=== PATIENT | male | born 1960 | race Hispanic/Latino ===

== ENCOUNTER 2022-09-14 08:37 | Inpatient (IN) | payer BC, SELFPAY ==
[2022-09-14] MEDS ORDERED: Iopamidol 370 76% 100 ML VIAL ONE (09:11)
[2022-09-14 09:30] LABS: #Eosinphils 0.2 10x3/uL (0.0-0.5); #Monocytes 0.9 10x3/uL (0.0-1.1); #Neutrophils 7.1 10x3/uL (1.5-8.4); %Basophils 0.3 % (0.0-2.0); %Eosinophils 2.1 % (0.0-6.0); %Lymphocytes 15.5 % (18.0-47.0); %Monocytes 9.4 % (0.0-10.0); %Neutrophils 72.1 % (40.0-75.0); Hemoglobin 15.4 g/dL (13.5-17.5); Mean Corpuscular HGB CONC 33.3 g/dL (32.0-36.0); Mean Corpuscular Hemoglobin 31.8 pg (27.0-33.0); Mean Corpuscular Volume 95.7 fl (81.2-95.1); Mean Platelet Volume 10.3 fl (7.4-10.4); Platelet Count 250 10x3/uL (150-450); RBC Distribution Width 14.5 % (11.5-14.5); Red Blood Cell (RBC) Count 4.84 10x6/uL (4.32-5.72); White Blood Cell (WBC) Count 9.9 10x3/uL (3.5-10.5)
[2022-09-14 09:47] LABS: ALT (SGPT) 41 U/L (8-55); AST (SGOT) 34 U/L (5-34); Albumin 4.2 g/dL (3.5-5.0); Alkaline Phosphatase 104 U/L (40-110); Anion Gap 13 mmol/L (10-20); BUN (Urea Nitrogen) 12 mg/dL (8.4-25.7); Bilirubin, Total 0.6 mg/dL (0.2-1.2); Calc. Creatinine Clearance 0 mL/min (70-130); Calcium 9.1 mg/dL (7.8-10.44); Carbon Dioxide 27 mmol/L (22-29); Chloride 105 mmol/L (98-107); Estimated GFR 49; Globulin 2.4 g/dL (2.4-3.5); Glucose 101 mg/dL (70-105); Potassium 4.2 mmol/L (3.5-5.1); Protein, Total 6.6 g/dL (6.0-8.3); Sodium 141 mmol/L (136-145)
[2022-09-14] MEDS ORDERED: Nitroglycerin 0.4 MG TAB (25 Tab Bottle) SL PRN (13:16)
[2022-09-14] MEDS ORDERED: Ondansetron ODT 4 MG TAB PO PRN (13:19)
[2022-09-14] MEDS ORDERED: Ondansetron PF 4 MG/2 ML Vial IVP PRN (13:19)
[2022-09-14] MEDS ORDERED: Acetaminophen 325 MG TAB PO PRN (13:19)
[2022-09-14] MEDS ORDERED: Dextrose 50% Abboject 50 ML SYRINGE SLOW IVP PRN (13:23)
[2022-09-14] MEDS ORDERED: HumaLOG 300 UNITS/3 ML VIAL SC PRN ×2 (13:23)
[2022-09-14] MEDS ORDERED: Dextrose 5% in Water 1,000 ML IV PRN (13:23)
[2022-09-14 13:35] LABS: Troponin I 0.054 ng/mL (< 0.028)
[2022-09-14 13:52] LABS: Magnesium 1.9 mg/dL (1.6-2.6)
[2022-09-14 14:13] LABS: Cardiac Risk 3.9 (Less than 4.5)
[2022-09-14] MEDS ORDERED: Enoxaparin Sodium 40 MG/0.4 ML SYRINGE SC SCH ×2 (14:30→21:00)
[2022-09-14] MEDS ORDERED: Nicotine 14 MG PATCH TD SCH (14:30)
[2022-09-14 16:05] LABS: Troponin I 0.053 ng/mL (< 0.028)
[2022-09-14] MEDS: Nicotine 14 MG PATCH TD SCH (21:14)
[2022-09-14 23:36] LABS: SARS-CoV-2 NAA Rapid Test Not Detected (NotDetected)
[2022-09-14] MEDS ORDERED: Melatonin 3 MG TAB PO SCH (23:45)
[2022-09-15 03:20] VITALS: BMI 37.3
[2022-09-15] MEDS ORDERED: HYDROcodone/Acetaminophen 10/325 mg Tablet ONE (04:30)
[2022-09-15] MEDS ORDERED: HYDROcodone/Acetaminophen 10/325 mg Tablet PO SCH (06:15)
[2022-09-15 06:44] LABS: #Basophils 0.1 10x3/uL (0.0-0.2); #Eosinphils 0.3 10x3/uL (0.0-0.5); #Neutrophils 7.9 10x3/uL (1.5-8.4); %Basophils 0.4 % (0.0-2.0); %Eosinophils 2.7 % (0.0-6.0); %Lymphocytes 17.4 % (18.0-47.0); %Monocytes 8.8 % (0.0-10.0); %Neutrophils 70.1 % (40.0-75.0); Hemoglobin 15.4 g/dL (13.5-17.5); Mean Corpuscular HGB CONC 33.4 g/dL (32.0-36.0); Mean Corpuscular Hemoglobin 32.6 pg (27.0-33.0); Mean Corpuscular Volume 97.5 fl (81.2-95.1); Mean Platelet Volume 11.1 fl (7.4-10.4); Platelet Count 256 10x3/uL (150-450); RBC Distribution Width 14.5 % (11.5-14.5); Red Blood Cell (RBC) Count 4.73 10x6/uL (4.32-5.72); White Blood Cell (WBC) Count 11.2 10x3/uL (3.5-10.5)
[2022-09-15 06:52] LABS: Anion Gap 15 mmol/L (10-20); BUN (Urea Nitrogen) 12 mg/dL (8.4-25.7); Calc. Creatinine Clearance 113 mL/min (70-130); Calcium 9.1 mg/dL (7.8-10.44); Carbon Dioxide 25 mmol/L (22-29); Chloride 105 mmol/L (98-107); Estimated GFR 74; Glucose 105 mg/dL (70-105); Potassium 4.2 mmol/L (3.5-5.1); Sodium 141 mmol/L (136-145)
[2022-09-15] MEDS ORDERED: Lisinopril 10 MG TAB PO SCH (09:00)
[2022-09-15] MEDS: Aspirin Chewable 81 MG TAB PO SCH (09:12)
[2022-09-15] MEDS ORDERED: Carvedilol 3.125 MG TAB PO SCH (10:00)
[2022-09-15] MEDS: HYDROcodone/Acetaminophen 10/325 mg Tablet PO PRN ×3 (10:38→20:42)
[2022-09-15] MEDS ORDERED: Communication Order-Pharmacy FS SCH (11:30)
[2022-09-15] MEDS: Sodium Chloride 0.9% 1,000 ML IV SCH (12:52)
[2022-09-15] MEDS: Carvedilol 3.125 MG TAB PO SCH (15:54)
[2022-09-15] MEDS: Rosuvastatin 20 MG TAB PO SCH (20:41)
[2022-09-15] MEDS: Nicotine 14 MG PATCH TD SCH (20:43)
[2022-09-16] MEDS: Sodium Chloride 0.9% 1,000 ML IV SCH ×2 (01:06→15:37)
[2022-09-16 04:40] LABS: #Basophils 0.1 10x3/uL (0.0-0.2); #Eosinphils 0.3 10x3/uL (0.0-0.5); #Neutrophils 7.4 10x3/uL (1.5-8.4); %Basophils 0.6 % (0.0-2.0); %Eosinophils 2.5 % (0.0-6.0); %Lymphocytes 16.4 % (18.0-47.0); %Monocytes 9.5 % (0.0-10.0); %Neutrophils 70.3 % (40.0-75.0); Hemoglobin 16.4 g/dL (13.5-17.5); Mean Corpuscular Hemoglobin 31.8 pg (27.0-33.0); Mean Corpuscular Volume 96.5 fl (81.2-95.1); Mean Platelet Volume 10.9 fl (7.4-10.4); Platelet Count 265 10x3/uL (150-450); RBC Distribution Width 14.2 % (11.5-14.5); Red Blood Cell (RBC) Count 5.15 10x6/uL (4.32-5.72); White Blood Cell (WBC) Count 10.6 10x3/uL (3.5-10.5)
[2022-09-16 04:48] LABS: ALT (SGPT) 30 U/L (8-55); AST (SGOT) 28 U/L (5-34); Alkaline Phosphatase 94 U/L (40-110); Anion Gap 13 mmol/L (10-20); BUN (Urea Nitrogen) 7 mg/dL (8.4-25.7); Bilirubin, Total 0.7 mg/dL (0.2-1.2); Calc. Creatinine Clearance 128 mL/min (70-130); Calcium 9.1 mg/dL (7.8-10.44); Carbon Dioxide 27 mmol/L (22-29); Cardiac Risk 4.5 (Less than 4.5); Chloride 104 mmol/L (98-107); Cholesterol 148 mg/dl (< 200 Desired); Estimated GFR 86; Globulin 2.9 g/dL (2.4-3.5); Glucose 107 mg/dL (70-105); HDL Cholesterol 33 mg/dL (>60 Neg Risk); LDL Cholesterol, Calculated 90 mg/dL; Magnesium 1.9 mg/dL (1.6-2.6); Potassium 4.1 mmol/L (3.5-5.1); Protein, Total 6.9 g/dL (6.0-8.3); Sodium 140 mmol/L (136-145); Triglycerides 123 mg/dL (Less than 150)
[2022-09-16 04:58] LABS: PTT 26.2 sec (22.0-33.0); Prothrombin Time 10.8 sec (9.5-12.1)
[2022-09-16] MEDS: Carvedilol 3.125 MG TAB PO SCH ×2 (06:08→16:10)
[2022-09-16] MEDS: Aspirin Chewable 81 MG TAB PO SCH (06:08)
[2022-09-16] MEDS: HYDROcodone/Acetaminophen 10/325 mg Tablet PO PRN ×3 (06:14→22:28)
[2022-09-16] MEDS: Magnesium Oxide 400 MG TAB PO SCH (08:22)
[2022-09-16] MEDS ORDERED: Iopamidol 300 61% 100 ML VIAL FS ONE (08:58)
[2022-09-16] MEDS ORDERED: Iopamidol 300 61% 50 ML VIAL FS ONE (08:58)
[2022-09-16] MEDS ORDERED: Nitroglycerin 50 MG/250 ML BOT 250 ML ONE (11:35)
[2022-09-16] MEDS ORDERED: Heparin 10,000 UNITS/ 10 ML VIAL ONE ×2 (11:36→13:54)
[2022-09-16] MEDS ORDERED: Adenosine 6 MG/2 ML VIAL ONE (11:38)
[2022-09-16] MEDS ORDERED: Verapamil 5 MG/2 ML VIAL ONE (11:38)
[2022-09-16] MEDS ORDERED: Bivalirudin 250 MG VIAL ONE (11:39)
[2022-09-16] MEDS ORDERED: Lidocaine 1% MPF 2 ML VIAL ONE (11:40)
[2022-09-16] MEDS ORDERED: Midazolam HCl 2 mg/2 ml Vial ONE ×2 (11:40→13:24)
[2022-09-16] MEDS ORDERED: Fentanyl 100 MCG/2 ML VIAL ONE (11:40)
[2022-09-16] MEDS ORDERED: TICAGRELOR 90 MG TABLET ONE (13:42)
[2022-09-16] MEDS ORDERED: Sodium Chloride 0.9% 200 ML IV PRN (14:14)
[2022-09-16] MEDS ORDERED: Nitroglycerin 0.4 MG TAB (25 Tab Bottle) SL PRN (14:14)
[2022-09-16] MEDS ORDERED: Acetaminophen/Codeine 30-300mg Tablet PO PRN ×2 (14:14)
[2022-09-16 14:53] LABS: Hemoglobin A1c 5.5 % (4.0-6.0)
[2022-09-16 19:25] LABS: Troponin I 0.084 ng/mL (< 0.028)
[2022-09-16] MEDS: Rosuvastatin 20 MG TAB PO SCH (22:15)
[2022-09-16] MEDS: TICAGRELOR 90 MG TABLET PO SCH (22:16)
[2022-09-16] MEDS: Nicotine 14 MG PATCH TD SCH (22:18)
[2022-09-16] MEDS: Sacubitril 49 MG/Valsartan 51 MG TABLET PO SCH (22:29)
[2022-09-17 04:41] LABS: #Eosinphils 0.2 10x3/uL (0.0-0.5); #Monocytes 1.2 10x3/uL (0.0-1.1); #Neutrophils 8.5 10x3/uL (1.5-8.4); %Basophils 0.3 % (0.0-2.0); %Eosinophils 1.7 % (0.0-6.0); %Lymphocytes 14.6 % (18.0-47.0); %Monocytes 10.5 % (0.0-10.0); %Neutrophils 72.5 % (40.0-75.0); Hemoglobin 16.4 g/dL (13.5-17.5); Mean Corpuscular HGB CONC 33.9 g/dL (32.0-36.0); Mean Corpuscular Hemoglobin 32.3 pg (27.0-33.0); Mean Corpuscular Volume 95.5 fl (81.2-95.1); Mean Platelet Volume 10.5 fl (7.4-10.4); Platelet Count 275 10x3/uL (150-450); RBC Distribution Width 14.3 % (11.5-14.5); Red Blood Cell (RBC) Count 5.07 10x6/uL (4.32-5.72); White Blood Cell (WBC) Count 11.8 10x3/uL (3.5-10.5)
[2022-09-17 04:53] LABS: Anion Gap 14 mmol/L (10-20); BUN (Urea Nitrogen) 10 mg/dL (8.4-25.7); Calc. Creatinine Clearance 117 mL/min (70-130); Carbon Dioxide 24 mmol/L (22-29); Chloride 107 mmol/L (98-107); Estimated GFR 78; Glucose 112 mg/dL (70-105); Magnesium 1.8 mg/dL (1.6-2.6); Sodium 141 mmol/L (136-145)
[2022-09-17] MEDS: Sodium Chloride 0.9% 1,000 ML IV SCH ×2 (06:05→11:43)
[2022-09-17] MEDS ORDERED: Magnesium Sulfate 4 GM in Sodium Chloride 0.9% 250 ML 250 ML IVPB SCH (07:45)
[2022-09-17] MEDS: ALPRAZolam 0.25 MG TAB PO PRN ×2 (10:17→17:41)
[2022-09-17] MEDS: Aspirin Chewable 81 MG TAB PO SCH (10:17)
[2022-09-17] MEDS: Magnesium Oxide 400 MG TAB PO SCH (10:17)
[2022-09-17] MEDS: Sacubitril 49 MG/Valsartan 51 MG TABLET PO SCH ×2 (10:17→21:01)
[2022-09-17] MEDS: Magnesium 2 GM/50 ML(in water) 2 GM in Premix Bag 1 BAG IVPB SCH ×2 (10:19→11:42)
[2022-09-17] MEDS: TICAGRELOR 90 MG TABLET PO SCH ×2 (10:19→21:02)
[2022-09-17] MEDS: Carvedilol 3.125 MG TAB PO SCH (11:43)
[2022-09-17] MEDS: HYDROcodone/Acetaminophen 10/325 mg Tablet PO PRN (17:40)
[2022-09-17] MEDS: Venlafaxine 75 MG TAB PO SCH (21:01)
[2022-09-17] MEDS: Rosuvastatin 20 MG TAB PO SCH (21:01)
[2022-09-17] MEDS: Nicotine 14 MG PATCH TD SCH (22:05)
[2022-09-18 05:07] LABS: Anion Gap 13 mmol/L (10-20); BUN (Urea Nitrogen) 10 mg/dL (8.4-25.7); Calc. Creatinine Clearance 136 mL/min (70-130); Calcium 9.1 mg/dL (7.8-10.44); Carbon Dioxide 25 mmol/L (22-29); Chloride 106 mmol/L (98-107); Estimated GFR 93; Glucose 112 mg/dL (70-105); Magnesium 2.3 mg/dL (1.6-2.6); Potassium 4.4 mmol/L (3.5-5.1); Sodium 140 mmol/L (136-145)
[2022-09-18 05:14] LABS: #Eosinphils 0.2 10x3/uL (0.0-0.5); #Monocytes 1.3 10x3/uL (0.0-1.1); #Neutrophils 11.4 10x3/uL (1.5-8.4); %Basophils 0.3 % (0.0-2.0); %Eosinophils 1.2 % (0.0-6.0); %Monocytes 8.8 % (0.0-10.0); %Neutrophils 77.2 % (40.0-75.0); Hemoglobin 17.2 g/dL (13.5-17.5); Mean Corpuscular HGB CONC 34.1 g/dL (32.0-36.0); Mean Corpuscular Hemoglobin 32.9 pg (27.0-33.0); Mean Corpuscular Volume 96.4 fl (81.2-95.1); Mean Platelet Volume 10.5 fl (7.4-10.4); Platelet Count 284 10x3/uL (150-450); RBC Distribution Width 14.2 % (11.5-14.5); Red Blood Cell (RBC) Count 5.23 10x6/uL (4.32-5.72); White Blood Cell (WBC) Count 14.8 10x3/uL (3.5-10.5)
[2022-09-18] MEDS: Sodium Chloride 0.9% 1,000 ML IV SCH ×2 (06:11→16:33)
[2022-09-18] MEDS: Aspirin Chewable 81 MG TAB PO SCH (08:23)
[2022-09-18] MEDS: Sacubitril 49 MG/Valsartan 51 MG TABLET PO SCH ×2 (08:23→20:55)
[2022-09-18] MEDS: Magnesium Oxide 400 MG TAB PO SCH (08:23)
[2022-09-18] MEDS: TICAGRELOR 90 MG TABLET PO SCH (08:24)
[2022-09-18] MEDS: ALPRAZolam 0.25 MG TAB PO PRN ×2 (08:25→20:56)
[2022-09-18] MEDS ORDERED: Prasugrel 10 MG TAB PO SCH (16:00)
[2022-09-18] MEDS: Nicotine 14 MG PATCH TD SCH (20:54)
[2022-09-18] MEDS: Rosuvastatin 20 MG TAB PO SCH (20:54)
[2022-09-18] MEDS: Venlafaxine 75 MG TAB PO SCH (20:55)
[2022-09-19 06:04] LABS: #Eosinphils 0.2 10x3/uL (0.0-0.5); #Monocytes 1.3 10x3/uL (0.0-1.1); #Neutrophils 9.6 10x3/uL (1.5-8.4); %Basophils 0.3 % (0.0-2.0); %Eosinophils 1.2 % (0.0-6.0); Hemoglobin 16.9 g/dL (13.5-17.5); Mean Corpuscular HGB CONC 32.8 g/dL (32.0-36.0); Mean Corpuscular Hemoglobin 31.9 pg (27.0-33.0); Mean Corpuscular Volume 97.2 fl (81.2-95.1); Mean Platelet Volume 10.4 fl (7.4-10.4); Platelet Count 288 10x3/uL (150-450); RBC Distribution Width 14.2 % (11.5-14.5); White Blood Cell (WBC) Count 13.2 10x3/uL (3.5-10.5)
[2022-09-19 06:14] LABS: Anion Gap 12 mmol/L (10-20); BUN (Urea Nitrogen) 13 mg/dL (8.4-25.7); Calc. Creatinine Clearance 125 mL/min (70-130); Carbon Dioxide 26 mmol/L (22-29); Chloride 104 mmol/L (98-107); Estimated GFR 84; Glucose 114 mg/dL (70-105); Potassium 4.1 mmol/L (3.5-5.1); Sodium 138 mmol/L (136-145)
[2022-09-19] MEDS ORDERED: Furosemide 20 MG/2 ML VIAL SLOW IVP SCH (08:00)
[2022-09-19] MEDS ORDERED: Prasugrel 10 MG TAB PO SCH (09:00)
[2022-09-19] MEDS: Magnesium Oxide 400 MG TAB PO SCH (10:19)
[2022-09-19] MEDS: Aspirin Chewable 81 MG TAB PO SCH (10:19)
[2022-09-19] MEDS: Sodium Chloride 0.9% 1,000 ML IV SCH (10:19)
[2022-09-19] MEDS: Sacubitril 49 MG/Valsartan 51 MG TABLET PO SCH (10:44)
[2022-09-19 12:29] VITALS: BP 129/76; TEMP 97.8
== END 2022-09-19 13:11 | disposition home or self-care (01) | DRG 246 ==
LOC: CSHERS 08:37 → CSHTELE 18:09 → OBSVTOIN 09-17 07:55
PROVIDERS: ADMIT Family Medicine; ATTEND Internal Medicine
PROC: 027135Z Dilation of Coronary Artery, Two Arteries with Two Drug-eluting Intraluminal Devices, Percutaneous Approach (ICD-10-PCS; principal; 2022-09-16)
PROC: 4A023N7 Measurement of Cardiac Sampling and Pressure, Left Heart, Percutaneous Approach (ICD-10-PCS; 2022-09-16)
PROC: B2111ZZ Fluoroscopy of Multiple Coronary Arteries using Low Osmolar Contrast (ICD-10-PCS; 2022-09-16)
PROC: B2151ZZ Fluoroscopy of Left Heart using Low Osmolar Contrast (ICD-10-PCS; 2022-09-16)
PROC: B241ZZ3 Ultrasonography of Multiple Coronary Arteries, Intravascular (ICD-10-PCS; 2022-09-16)
DX: I25.10 Atherosclerotic heart disease of native coronary artery without angina pectoris (principal); I50.21 Acute systolic (congestive) heart failure; R44.3 Hallucinations, unspecified; Z20.822 Contact with and (suspected) exposure to COVID-19; E78.5 Hyperlipidemia, unspecified; K21.9 Gastro-esophageal reflux disease without esophagitis; E11.9 Type 2 diabetes mellitus without complications; R79.89 Other specified abnormal findings of blood chemistry; I25.5 Ischemic cardiomyopathy; I11.0 Hypertensive heart disease with heart failure; E83.42 Hypomagnesemia; F17.210 Nicotine dependence, cigarettes, uncomplicated; F41.9 Anxiety disorder, unspecified; F10.10 Alcohol abuse, uncomplicated; G47.33 Obstructive sleep apnea (adult) (pediatric); Z79.899 Other long term (current) drug therapy; Z79.82 Long term (current) use of aspirin; Z79.84 Long term (current) use of oral hypoglycemic drugs; Z79.52 Long term (current) use of systemic steroids
CPT/HCPCS: 36415; 36416; 71045; 71275; 80048; 80053; 80061; 82553; 83036; 83735; 84439; 84443; 84484; 85025; 85347; 85379; 85610; 85730; 92928; 92978; 92979; 93005; 93010; 93306; 93458; 94660; 94760; 96372; 97139; 99152; 99153; C1753; C1769; C1874; C1887; C1894; C9600; G0378; J0153; J0583; J1644; J1650; J1815; J1940; J2250; J3010; J3475; J7050; Q9967; U0002

== ENCOUNTER 2023-08-31 09:37 | Observation (INO) | payer OTHER, SELFPAY ==
[2023-08-31] MEDS ORDERED: Iopamidol 370 76% 100 ML VIAL ONE (10:01)
[2023-08-31 10:31] LABS: #Basophils 0.1 10x3/uL (0.0-0.2); #Eosinphils 0.3 10x3/uL (0.0-0.5); #Monocytes 0.8 10x3/uL (0.0-1.1); #Neutrophils 6.8 10x3/uL (1.5-8.4); %Basophils 0.7 % (0.0-2.0); %Eosinophils 3.1 % (0.0-6.0); %Lymphocytes 16.6 % (18.0-47.0); %Neutrophils 71.2 % (40.0-75.0); Hematocrit 58.6 % (38.8-50.0); Hemoglobin 19.5 g/dL (13.5-17.5); Mean Corpuscular HGB CONC 33.3 g/dL (32.0-36.0); Mean Corpuscular Hemoglobin 31.5 pg (27.0-33.0); Mean Corpuscular Volume 94.7 fl (81.2-95.1); Mean Platelet Volume 10.6 fl (7.4-10.4); Platelet Count 283 10x3/uL (150-450); RBC Distribution Width 14.8 % (11.5-14.5); Red Blood Cell (RBC) Count 6.19 10x6/uL (4.32-5.72); White Blood Cell (WBC) Count 9.6 10x3/uL (3.5-10.5)
[2023-08-31 10:44] LABS: Bilirubin Neg (Negative); Blood, Urine 50 (Negative); Clarity Clear (Clear); Glucose, Urine (Dipstick) >=1000 mg/dL (Negative); Ketone, Urine Negative (Negative); Leukocyte Negative (Negative); Nitrite Negative (Negative); Protein, Urine (Dipstick) 30 mg/dl (Neg-Trace); Specific Gravity, Urine 1.015 (1.005-1.030); Urobilinogen Normal mg/dL (Less than 2)
[2023-08-31 10:47] LABS: ALT (SGPT) 31 U/L (8-55); AST (SGOT) 28 U/L (5-34); Albumin 4.5 g/dL (3.4-4.8); Alkaline Phosphatase 110 U/L (40-110); Anion Gap 15 mmol/L (10-20); BUN (Urea Nitrogen) 24 mg/dL (8.4-25.7); Bilirubin, Total 0.5 mg/dL (0.2-1.2); Calc. Creatinine Clearance 0 mL/min (70-130); Calcium 9.6 mg/dL (7.8-10.44); Carbon Dioxide 24 mmol/L (23-31); Chloride 105 mmol/L (98-107); Estimated GFR 61; Globulin 3.4 g/dL (2.4-3.5); Glucose 122 mg/dL (80-115); Protein, Total 7.9 g/dL (5.8-8.1); Sodium 138 mmol/L (136-145)
[2023-08-31 10:48] LABS: Troponin I 0.011 ng/mL (< 0.028)
[2023-08-31 10:52] LABS: Potassium 6.1 mmol/L (3.5-5.1)
[2023-08-31 10:59] LABS: Bacteria/HPF None Seen HPF (None Seen); CAUTI Indications for Culture Pelvic or flank pain; Squamous Epithelial 0-3 HPF (0-3); Urine Culture Reflex No No; WBC/HPF None Seen HPF (0-3)
[2023-08-31 11:33] LABS: Anion Gap 13 mmol/L (10-20); BUN (Urea Nitrogen) 24 mg/dL (8.4-25.7); Calc. Creatinine Clearance 0 mL/min (70-130); Calcium 9.4 mg/dL (7.8-10.44); Carbon Dioxide 27 mmol/L (23-31); Chloride 104 mmol/L (98-107); Estimated GFR 62; Glucose 109 mg/dL (80-115); Potassium 5.8 mmol/L (3.5-5.1); Sodium 138 mmol/L (136-145)
[2023-08-31 12:28] LABS: Magnesium 2.2 mg/dL (1.6-2.6)
[2023-08-31] MEDS ORDERED: Dextrose 50% Abboject 50 ML SYRINGE ONE (12:46)
[2023-08-31] MEDS ORDERED: Insulin Regular 300 UNITS/3 ML VIAL ONE (12:46)
[2023-08-31] MEDS ORDERED: Ondansetron ODT 4 MG TAB PO PRN (14:04)
[2023-08-31] MEDS ORDERED: Dextrose 5% in Water 1,000 ML IV PRN (14:04)
[2023-08-31] MEDS ORDERED: Insulin Regular 300 UNITS/3 ML VIAL SC PRN (14:04)
[2023-08-31] MEDS ORDERED: Dextrose 50% Abboject 50 ML SYRINGE SLOW IVP PRN (14:04)
[2023-08-31] MEDS ORDERED: Glucagon 1 MG/ML KIT IM PRN (14:04)
[2023-08-31] MEDS ORDERED: Acetaminophen 325 MG TAB PO PRN (14:04)
[2023-08-31] MEDS ORDERED: Furosemide 40 MG/4 ML VIAL SLOW IVP SCH (14:45)
[2023-08-31] MEDS ORDERED: Furosemide 40 MG/4 ML VIAL ONE (15:02)
[2023-08-31 16:46] LABS: Anion Gap 15 mmol/L (10-20); BUN (Urea Nitrogen) 24 mg/dL (8.4-25.7); Calc. Creatinine Clearance 0 mL/min (70-130); Calcium 8.8 mg/dL (7.8-10.44); Carbon Dioxide 22 mmol/L (23-31); Chloride 106 mmol/L (98-107); Estimated GFR 68; Glucose 90 mg/dL (80-115); Potassium 4.6 mmol/L (3.5-5.1); Sodium 138 mmol/L (136-145)
[2023-08-31] MEDS ORDERED: Empagliflozin 10 MG TAB PO SCH (17:00)
[2023-08-31] MEDS ORDERED: Spironolactone 25 MG TAB PO SCH (17:15)
[2023-08-31 18:45] VITALS: BMI 40.0
[2023-08-31 20:06] LABS: Hemoglobin A1c 5.5 % (4.0-6.0)
[2023-08-31] MEDS ORDERED: Sacubitril 49 MG/Valsartan 51 MG TABLET PO SCH (21:00)
[2023-08-31] MEDS ORDERED: Carvedilol 6.25 MG TAB PO SCH (21:00)
[2023-08-31] MEDS: Atorvastatin Calcium 40 MG TAB PO SCH (21:43)
[2023-08-31] MEDS: Sacubitril 49 MG/Valsartan 51 MG TABLET PO SCH (21:43)
[2023-09-01 04:35] LABS: #Eosinphils 0.4 10x3/uL (0.0-0.5); #Monocytes 0.8 10x3/uL (0.0-1.1); #Neutrophils 6.4 10x3/uL (1.5-8.4); %Basophils 0.4 % (0.0-2.0); %Eosinophils 4.2 % (0.0-6.0); %Lymphocytes 18.9 % (18.0-47.0); %Monocytes 8.5 % (0.0-10.0); %Neutrophils 67.7 % (40.0-75.0); Hemoglobin 17.5 g/dL (13.5-17.5); Mean Corpuscular Hemoglobin 30.8 pg (27.0-33.0); Mean Corpuscular Volume 93.1 fl (81.2-95.1); Platelet Count 271 10x3/uL (150-450); RBC Distribution Width 15.1 % (11.5-14.5); Red Blood Cell (RBC) Count 5.69 10x6/uL (4.32-5.72); White Blood Cell (WBC) Count 9.4 10x3/uL (3.5-10.5)
[2023-09-01 04:38] LABS: ALT (SGPT) 33 U/L (8-55); AST (SGOT) 28 U/L (5-34); Albumin 4.2 g/dL (3.4-4.8); Alkaline Phosphatase 82 U/L (40-110); Anion Gap 16 mmol/L (10-20); BUN (Urea Nitrogen) 25 mg/dL (8.4-25.7); Bilirubin, Total 0.6 mg/dL (0.2-1.2); Calc. Creatinine Clearance 105 mL/min (70-130); Calcium 8.8 mg/dL (7.8-10.44); Carbon Dioxide 21 mmol/L (23-31); Chloride 105 mmol/L (98-107); Estimated GFR 64; Globulin 3.2 g/dL (2.4-3.5); Glucose 107 mg/dL (80-115); Potassium 4.2 mmol/L (3.5-5.1); Protein, Total 7.4 g/dL (5.8-8.1); Sodium 138 mmol/L (136-145)
[2023-09-01] MEDS ORDERED: Furosemide 20 MG/2 ML VIAL SLOW IVP SCH (06:00)
[2023-09-01] MEDS: Spironolactone 25 MG TAB PO SCH (09:37)
[2023-09-01] MEDS: Furosemide 40 MG TAB PO SCH (09:37)
[2023-09-01] MEDS: Prasugrel 10 MG TAB PO SCH (10:26)
[2023-09-01] MEDS: Aspirin Chewable 81 MG TAB PO SCH (10:27)
[2023-09-01] MEDS: Empagliflozin 10 MG TAB PO SCH (10:27)
[2023-09-01] MEDS: Sacubitril 49 MG/Valsartan 51 MG TABLET PO SCH ×2 (10:27→20:36)
[2023-09-01] MEDS: Thiamine 100 MG TAB PO SCH (10:32)
[2023-09-01] MEDS ORDERED: Thiamine 100 MG TAB PO SCH (11:00)
[2023-09-01] MEDS ORDERED: chlordiazePOXIDE HCl 5 MG CAP PO SCH (11:00)
[2023-09-01] MEDS ORDERED: Carvedilol 3.125 MG TAB PO SCH (11:00)
[2023-09-01] MEDS: chlordiazePOXIDE HCl 5 MG CAP PO SCH ×2 (14:58→20:36)
[2023-09-01] MEDS: Carvedilol 3.125 MG TAB PO SCH (17:55)
[2023-09-01] MEDS: Atorvastatin Calcium 40 MG TAB PO SCH (20:36)
[2023-09-02] MEDS ORDERED: Melatonin 3 MG TAB PO SCH (01:45)
[2023-09-02 04:15] LABS: Anion Gap 15 mmol/L (10-20); BUN (Urea Nitrogen) 24 mg/dL (8.4-25.7); Calc. Creatinine Clearance 107 mL/min (70-130); Carbon Dioxide 20 mmol/L (23-31); Chloride 104 mmol/L (98-107); Estimated GFR 70; Glucose 110 mg/dL (80-115); Potassium 4.2 mmol/L (3.5-5.1); Sodium 135 mmol/L (136-145)
[2023-09-02] MEDS: chlordiazePOXIDE HCl 5 MG CAP PO SCH (08:28)
[2023-09-02] MEDS: Furosemide 40 MG TAB PO SCH (08:35)
[2023-09-02] MEDS: Sacubitril 49 MG/Valsartan 51 MG TABLET PO SCH (08:36)
[2023-09-02] MEDS: Spironolactone 25 MG TAB PO SCH (08:36)
[2023-09-02] MEDS: Aspirin Chewable 81 MG TAB PO SCH (08:36)
[2023-09-02] MEDS: Empagliflozin 10 MG TAB PO SCH (08:36)
[2023-09-02] MEDS: Prasugrel 10 MG TAB PO SCH (08:36)
[2023-09-02] MEDS: Carvedilol 3.125 MG TAB PO SCH (08:36)
[2023-09-02] MEDS: Thiamine 100 MG TAB PO SCH (08:37)
[2023-09-02 08:47] VITALS: BP 106/72
[2023-09-02] MEDS ORDERED: Folic Acid 1 MG TAB PO SCH (09:00)
[2023-09-02 09:29] VITALS: TEMP 98
== END 2023-09-02 12:45 | disposition home or self-care (01) ==
LOC: CSHERS 09:37 → CSHERHOLD 10:39 → CSHTELE 17:58
PROVIDERS: ADMIT Family Medicine; ATTEND Family Medicine
DX: I11.0 Hypertensive heart disease with heart failure (principal); I50.20 Unspecified systolic (congestive) heart failure; I25.10 Atherosclerotic heart disease of native coronary artery without angina pectoris; E78.5 Hyperlipidemia, unspecified; I47.20 Ventricular tachycardia, unspecified; I50.23 Acute on chronic systolic (congestive) heart failure; E87.5 Hyperkalemia; I73.9 Peripheral vascular disease, unspecified; I10 Essential (primary) hypertension; N17.9 Acute kidney failure, unspecified; R00.1 Bradycardia, unspecified; K21.9 Gastro-esophageal reflux disease without esophagitis; G47.00 Insomnia, unspecified; Z95.5 Presence of coronary angioplasty implant and graft; Z79.4 Long term (current) use of insulin; Z87.891 Personal history of nicotine dependence; Z79.82 Long term (current) use of aspirin; Z79.899 Other long term (current) drug therapy
CPT/HCPCS: 36415; 36416; 71045; 71275; 80048; 80053; 81001; 83036; 83735; 83880; 84443; 84484; 85025; 93005; 93306; 94660; 96361; 96374; 96375; G0378; J1815; J1940; J7999; Q9967

== ENCOUNTER 2024-10-24 09:02 | Outpatient (CLI) | payer OTHER | END 2024-10-24 09:03 | disposition home or self-care (01) | LOC: CSHSLEEP 09:02 | PROVIDERS: ATTEND Family Medicine | DX: G47.33 Obstructive sleep apnea (adult) (pediatric) (principal); E66.9 Obesity, unspecified; Z68.38 Body mass index [BMI] 38.0-38.9, adult; G47.00 Insomnia, unspecified; I25.10 Atherosclerotic heart disease of native coronary artery without angina pectoris; I11.9 Hypertensive heart disease without heart failure | CPT/HCPCS: 95800 ==

== ENCOUNTER 2025-06-15 10:23 | Emergency (ER) | payer OTHER ==
[2025-06-15] MEDS ORDERED: Ketorolac Tromethamine 30 MG (1 mL) VIAL ONE (11:02)
[2025-06-15] MEDS ORDERED: Lidocaine 1% w/Epinephrine 1:200K 30 ML VIAL ONE (11:02)
== END 2025-06-15 13:01 | disposition home or self-care (01) ==
LOC: CSHERS 10:23
DX: L02.413 Cutaneous abscess of right upper limb (principal); I10 Essential (primary) hypertension; J44.9 Chronic obstructive pulmonary disease, unspecified; Z87.891 Personal history of nicotine dependence
CPT/HCPCS: 10060; 87070; 87205; 96372; J1885